=== PATIENT | female | born 1970 | race Caucasian/White ===

== ENCOUNTER 2017-02-21 06:10 | Day surgery (SDC) | payer BC ==
[2017-02-20 09:05] VITALS: BMI 22.5
[2017-02-21] VITALS (8 sets, daily range): BP systolic 103–119; BP diastolic 54–66; PULSE 68–77; RESP 17–77; Ht 175.3 cm; Wt 72.0 kg
[~2017-02-21] VITALS: Ht 175.3 cm; Wt 72.0 kg
[~2017-02-21 06:10] MED LIST: LACTATED RINGER'S 1,000 ML IV* SCH
[2017-02-21 07:15] LABS: ADD SCAN DIFF NO
[2017-02-21 07:20] LABS: BASOPHILS % 0.3 % (0.0-2.0); EOSINOPHILS # 0.4 10^3/ul (0.0-0.5); EOSINOPHILS % 4.6 % (0.0-7.0); HEMATOCRIT 41.1 % (37.0-47.0); LYMPHOCYTES # 1.7 10^3/ul (0.8-2.9); LYMPHOCYTES % 21.6 % (15.0-51.0); MEAN CORPUSCULAR HEMOGLOBIN 27.2 pg (29.0-33.0); MEAN CORPUSCULAR HGB CONC 31.6 g/dl (32.0-37.0); MEAN PLATELET VOLUME 12.2 fl (7.4-10.4); MONOCYTE # 0.7 10^3/ul (0.3-0.9); MONOCYTES % 8.8 % (0.0-11.0); NEUTROPHIL # 5.1 10^3/ul (1.6-7.5); NEUTROPHILS % 64.4 % (39.0-77.0); PLATELET COUNT 218 10^3/UL (140-415); RED BLOOD COUNT 4.78 10^6/ul (4.20-5.40); RED CELL DISTRIBUTION WIDTH 14.2 % (11.5-14.5); WHITE BLOOD COUNT 7.8 10^3/ul (4.8-10.8)
[2017-02-21 07:33] LABS: ADD UMIC YES; URINE BILIRUBIN (Dip) NEGATIVE (NEGATIVE); URINE BLOOD (Dip) TRACE (NEGATIVE); URINE COLOR LT. YELLOW (YELLOW); URINE GLUCOSE (Dip) NEGATIVE (NEGATIVE); URINE KETONES (Dip) NEGATIVE (NEGATIVE); URINE LEUKOCYTE ESTERASE (Dip) 1+ (NEGATIVE); URINE NITRITE (Dip) NEGATIVE (NEGATIVE); URINE TOTAL PROTEIN (Dip) NEGATIVE (NEGATIVE); URINE UROBILINOGEN (Dip) 0.2 E.U./dL (0.1-1.0)
[2017-02-21 07:42] LABS: INR 1.03; PROTIME 13.5 Sec (12.2-14.2); PT RATIO 1.1
[2017-02-21 07:43] LABS: PARTIAL THROMBOPLASTIN TIME 27.8 Sec (25.0-35.0)
[2017-02-21] MEDS ORDERED: MIDAZOLAM 1 MG/ML 2 ML INJ ONE (07:44)
[2017-02-21 07:50] LABS: BACTERIA,URINE FEW; MUCUS,URINE FEW
[2017-02-21 07:55] LABS: ALBUMIN 3.6 g/dl (3.3-4.9); ALBUMIN/GLOBULIN RATIO 1.09; BILIRUBIN,INDIRECT 0.1 mg/dl (0-1.1); BILIRUBIN,TOTAL 0.1 mg/dl (0.2-1.3); TOTAL PROTEIN 6.9 g/dl (6.1-8.1)
[2017-02-21 08:18] LABS: CALCIUM 8.4 mg/dl (8.4-10.2); CREATININE 0.65 mg/dl (0.44-1.00)
[2017-02-21] MEDS ORDERED: CEFAZOLIN 1 GM INJ ONE (08:21)
[2017-02-21] MEDS ORDERED: DIPHENHYDRAMINE 50 MG INJ ONE (08:29)
--- NOTE | 2017-02-21 08:54 | PD.PPDC ---
[employer] DEMONSTRATOR Discharge Instruction Diagnosis Final Diagnosis: abnormal uterine bleeding Condition Patient Condition: Stable Diet Diet: Resume Regular Diet Activity/Restrictions Activity: February Shower Restrictions: No Sexual Activity Nothing in the Vagina No [place] No Tampons, douche Follow-up Follow-up with Physician: 2, Week/Weeks Return to clinic for [employer]ER Instructions: Fever greater than 101 Chills Worsening abdominal pain Excessive Vaginal Bleeding More than 2 pads per hour Unable to tolerate diet JONO KEE MD February 21, 2017 08:54
[2017-02-21] MEDS ORDERED: ONDANSETRON 4 MG INJ IV PRN (09:00)
[2017-02-21] MEDS ORDERED: MIDAZOLAM 1 MG/ML 2 ML INJ IV PRN (09:00)
[2017-02-21] MEDS ORDERED: DIPHENHYDRAMINE 50 MG INJ IV PRN (09:00)
[2017-02-21] MEDS ORDERED: FENTAnyl 50 MCG/ML VIAL IV PRN ×2 (09:00)
[2017-02-21] MEDS ORDERED: ACETAMINOPHEN 325 MG TAB PO ONE (10:30)
--- NOTE | 2017-02-26 13:10 | OPR ---
DATE OF OPERATION: 02/21/2017 PREOPERATIVE DIAGNOSIS: Abnormal uterine bleeding. POSTOPERATIVE DIAGNOSIS: See pathological report. OPERATION PERFORMED: Fractional dilatation and curettage. SURGEON: Judy Vasquez MD ANESTHESIA: MAC. ESTIMATED BLOOD LOSS: Negligible. PROCEDURE: Under proper induction of MAC, the patient was placed in dorsal lithotomy position. Per ineal area and vagina wall was prepped and draped in usual aseptic manner. On inspection, external genitalia revealed no gross abnormality. On bimanual examination, uterus was slightly increased in size. There was no palpable adnexal pathology. Weighted speculum was introduced and anterior lip o f the cervix was grasped with a single-tooth tenaculum, and endocervical curettage was performed obt aining scanty tissue, which was sent to pathology. Cavity was sounded, which was 8 cm, and the os w as dilated gradually and a medium-sized curette was introduced into the uterine cavity. Entire uter ine cavity was curetted in all directions with obtaining moderate amount of endometrial tissue, whic h was sent to pathology. There was no gross irregularity noted in the cavity. Procedure was comple ferny. All the instruments were removed from the operative field. The patient withstood the procedur e and was sent to the recovery room in stable condition. Dictated By: JUDY PAGE/OCTAVIA Conf#: [id number] DID#: [id number]
== END 2017-02-21 10:25 | disposition home or self-care (01) ==
LOC: SDS 06:10
PROVIDERS: ATTEND Obstetrics & Gynecology
DX: N92.0 Excessive and frequent menstruation with regular cycle (principal)
CPT/HCPCS: 58120; 80053; 81001; 85025; 85610; 85730; 88305; J0690; J1200; J2250; J3010; Z7512; Z7610; 81003